=== PATIENT | female | born 1955 | race Caucasian/White ===

== ENCOUNTER → 2017-04-20 | Outpatient (CLI) | payer OTHER | LOC: CIMAGING 15:03 | DX: D25.2 Subserosal leiomyoma of uterus (principal); N95.0 Postmenopausal bleeding; N94.89 Other specified conditions associated with female genital organs and menstrual cycle | CPT/HCPCS: 76856-PO ==

== ENCOUNTER → 2018-08-25 | Outpatient (CLI) | payer OTHER | LOC: CIMAGING 09:28 | PROVIDERS: ATTEND Family Medicine | DX: Z12.31 Encounter for screening mammogram for malignant neoplasm of breast (principal) ==

== ENCOUNTER → 2018-12-06 | Outpatient (CLI) | payer OTHER | LOC: FIMAGING 10:29 | PROVIDERS: ATTEND Family Medicine | DX: Z13.820 Encounter for screening for osteoporosis (principal); M85.89 Other specified disorders of bone density and structure, multiple sites; E55.9 Vitamin D deficiency, unspecified; M89.9 Disorder of bone, unspecified; Z78.0 Asymptomatic menopausal state; Z79.890 Hormone replacement therapy ==

== ENCOUNTER 2019-02-05 19:58 | Emergency (ER) | payer OTHER ==
[2019-02-05 20:06] VITALS: BP 132/67
--- NOTE | 2019-02-05 20:11 | EDPHY ---
H & P Stated Complaint: lac to bottom of r foot Time Seen by Provider: 02/05/19 20:11 - Personal History Current Tetanus/Diphtheria Vaccine: Yes Current Tetanus Diphtheria and Acellular Pertussis (TDAP): Yes - Medical/Surgical History Hx Asthma: No Hx Chronic Respiratory Disease: No Hx Diabetes: No Hx Cardiac Disease: No Hx Renal Disease: No Hx Cirrhosis: No Hx Alcoholism: No Hx HIV/AIDS: No Hx Splenectomy or Spleen Trauma: No Other PMH: malena , thyroid - Social History Smoking Status: Never smoked Constitutional: Initial Vital Signs Temperature (C) 37.0 C 02/05/19 20:03 Heart Rate 87 02/05/19 20:03 Respiratory Rate 18 02/05/19 20:03 Blood Pressure 132/67 H 02/05/19 20:03 O2 Sat (%) 94 02/05/19 20:03 O2 Delivery Mode Room Air Allergies/Adverse Reactions: No Known Allergies Allergy (Unverified 02/05/19 20:05) Home Medications: Medication Instructions Recorded Control Pill 1 DAILY 01/24/12 Estrogen,Con/M-Progest Acet 1 each PO 02/05/19 [Prempro 0.45-1.5 mg Tablet] Levothyroxine [Synthroid 100 mcg 100 mcg PO DAILY06 02/05/19 (*)] Sulfamethox/Tmp 800/160 mg 1 tab PO BID #14 tab 02/05/19 [Bactrim Ds] Tetanus/Dip/Acel Pertuss Adult 0.5 ml IM ONCE #1 vial 02/05/19 [Boostrix] Medical Decision Making - Diagnostics Imaging: I viewed and interpreted images myself ED Course/Re-evaluation: CHIEF COMPLAINT: Right foot injury HISTORY OF PRESENT ILLNESS: The patient is a 63 y/o female complaining of a right foot injury after stepping on a metal bike sculpture while bare foot. After stepping on the sculpture, she cleaned the wound. However, throughout the day she developed pain on the top of her foot, which concerned her. She is unsure of her tetanus status. No fever, headache, body aches, lightheadedness, chest pain, heart palpitations, shortness of breath, cough, abdominal pain, urinary or bowel complaints, numbness, paresthesias. REVIEW OF SYSTEMS: A comprehensive 10 system review of systems is otherwise negative aside from elements mentioned in the history of present illness and medical decision making. PHYSICAL EXAM: HR, BP, O2 Sat, RR. Temp noted General Appearance: Alert, well hydrated, appropriate, and non-toxic appearing. Head: Atraumatic without scalp tenderness or obvious injury Eyes: Pupils equal, round, reactive to light and accommodation, EOMI, no trauma , no injection. Ears: Clear bilaterally, no perforation, normal landmarks Nose: Atraumatic, no rhinorrhea, clear. Throat: There is no erythema or exudates, no lesions, normal tonsils, mucus membranes moist. Neck: Supple, 2+ carotid upstroke, nontender, no lymphadenopathy. Respiratory: No retractions, no distress, no wheezes, and no accessory muscle use. Lungs are clear to auscultation bilaterally. Cardiovascular: Regular rate and rhythm, no murmurs, rubs, or gallops. Bilateral carotid, radial, dorsalis pedis, and posterior tibial pulses intact. Good capillary refill all extremities. Gastrointestinal: Abdomen is soft, nontender, non-distended, no masses, no rebound, no guarding, no peritoneal signs. Musculoskeletal: Normal active ROM of all extremities, atraumatic. Neurological: Alert, appropriate, and interactive. The patient has normal DTRs and non-focal cranial nerves, motor, sensory, and cerebellar exam. Skin: Puncture wound to the medial aspect of the patient's right foot. No rashes , good turgor, no nodules on palpation. Past medical history: Thyroid Past surgical history: Cholecystectomy Family history: Denies Social history: at bedside, employed, lives in [place] DIAGNOSTICS/PROCEDURES/CRITICAL CARE TIME: Right foot x-ray: No fracture or foreign body. DIFFERENTIAL DIAGNOSIS: The differential diagnosis for the patient's puncture wound includes but is not limited to puncture wound, contusion, laceration, fracture. MEDICAL DECISION MAKING: The patient is a 63 y/o female presenting with a right foot injury after stepping on a metal bike sculpture while bare foot. Throughout the day she developed pain on the top of her foot, which concerned her. She is unsure of her tetanus status. On exam she has a puncture wound to the medial aspect of her right foot. TDAP booster administered. Right foot x-ray ordered to rule out foreign body or fracture. The wound does not need to be sutured. 2040: Reassessed patient and discussed normal imaging findings. I have prescribed her Bactrim and advised her to wear a post-op shoe. Return precautions provided; patient is comfortable with this plan. Departure - Departure Disposition: Home, Routine, Self-Care Clinical Impression: Puncture wound Condition: Good Instructions: Puncture Wound (ED) Additional Instructions: 1. Take Bactrim as prescribed. 2. Return to the Emergency Department for fever, redness, discharge from wound, increasing pain or other worsening of condition. 3. Wear the post-op shoe until your symptoms improve. Referrals: Kristine Kurtz MD [Primary Care Provider] - As per Instructions Prescriptions: Sulfamethox/Tmp 800/160 mg [Bactrim Ds] 1 tab PO BID #14 tab Tetanus/Dip/Acel Pertuss Adult [Boostrix] 0.5 ml IM ONCE #1 vial Report Scribed for: Anish Rivero Report Scribed by: Eden Orta Date of Report: 02/05/19 Time of Report: 20:18
[2019-02-05] MEDS ORDERED: SULFAMETHOX/TMP 800/160 MG 1 TAB PO ONE (20:27)
[2019-02-05] MEDS ORDERED: TDAP ADULT 0.5 ML INJ (BOOSTRIX) IM ONE (20:31)
== END 2019-02-05 20:59 | disposition home or self-care (01) ==
DX: S91.331A Puncture wound without foreign body, right foot, initial encounter (principal); Z23 Encounter for immunization; W26.8XXA Contact with other sharp object(s), not elsewhere classified, initial encounter
CPT/HCPCS: L4386